=== PATIENT | female | born 1995 | race American Indian/Alaskan Native ===

== ENCOUNTER 2019-07-30 09:31 | Outpatient (CLI) | payer MEDICAID | END 2019-07-30 11:30 | disposition home or self-care (01) | LOC: LAB 09:31 → TRG 11:25 → LAB 11:30 | PROVIDERS: ATTEND Nurse Practitioner Gerontology | DX: O26.893 Other specified pregnancy related conditions, third trimester (principal); Z67.91 Unspecified blood type, Rh negative; Z3A.28 28 weeks gestation of pregnancy | CPT/HCPCS: 86850; 86900; 86901; J2790 ==

== ENCOUNTER 2019-08-26 17:27 | Outpatient (CLI) | payer MEDICAID ==
[2019-08-26 18:05] VITALS: BP 102/55
[2019-08-26] MEDS ORDERED: LACTATED RINGERS 1,000 ML IV SCH (19:00)
--- NOTE | 2019-08-26 20:02 | Ultrasound Report ---
OB Ultrasound BPP HISTORY: labor. TECHNIQUE: Grayscale and color Doppler imaging performed. COMPARISON: None FINDINGS: There is a single viable intrauterine gestation which is cephalic in presentation. KRANTHI is 1 3 cm. Placenta is positioned anteriorly with no evidence of placenta previa. Heart rate is 130 bpm. On biophysical profile, the fetus received a score of 2 out of 2 for breathing movement, movement, po sture/tone, and qualitative KRANTHI. Total score was 8 out of 8. IMPRESSION: 1. Single viable intrauterine gestation as above. 2. Normal BPP. Signer Name: Scott Mock MD Signed: 08/26/2019 7:58 PM Workstation Name: [id number]
== END 2019-08-26 19:29 | disposition home or self-care (01) ==
LOC: TRG 17:27
PROVIDERS: ATTEND Obstetrics & Gynecology
DX: O47.03 False labor before 37 completed weeks of gestation, third trimester (principal); Z3A.34 34 weeks gestation of pregnancy
CPT/HCPCS: 59025; 76815; 76819

== ENCOUNTER 2019-10-07 18:57 | Outpatient (CLI) | payer MEDICAID ==
[2019-10-07 19:21] VITALS: BP 105/63
--- NOTE | 2019-10-07 20:44 | Ultrasound Report ---
Limited obstetrical ultrasound INDICATION: Decreased movement Intrauterine is seen. Limited evaluation of the placenta and amniotic fluid was performed. Cardiac activity was noted with heart rate of 150 bpm. Fetus is in a cephalic position. Placent a is left lateral and free of the internal cervical os. No evidence of placental abruption is seen. A mniotic fluid volume appears qualitatively within normal limits and KRANTHI is within normal limits at 11 .2 cm. BIOPHYSICAL PROFILE breathing movements: 2/2 movements: 2/2 posture and tone tone: 2/2 Qualitative amniotic fluid volume: 2/2 Total score: 8/8, within normal limits Signer Name: Roberto Rodriguez MD Signed: 10/07/2019 8:40 PM Workstation Name: [email or web address]
== END 2019-10-07 20:45 | disposition home or self-care (01) ==
LOC: TRG 18:57
PROVIDERS: ATTEND Obstetrics & Gynecology
DX: O36.8130 Decreased fetal movements, third trimester, not applicable or unspecified (principal); Z3A.40 40 weeks gestation of pregnancy
CPT/HCPCS: 59025; 76815; 76819